=== PATIENT | female | born 1995 | race Two or more races ===

== ENCOUNTER 2021-09-28 16:01 | Emergency (ER) | payer OTHER ==
[~2021-09-28] VITALS: Ht 149.9 cm; Wt 50.8 kg
[2021-09-28] MEDS ORDERED: ACETAMINOPHEN650 M2 PO (23:18)
[2021-09-28] MEDS ORDERED: MUCINEX DM ER1 EAC1 PO (23:18)
[2021-09-28] MEDS ORDERED: ZYRTEC10 MG PO (23:18)
== END 2021-09-28 23:42 | disposition home or self-care (01) ==
LOC: ER 16:01
DX: J06.9 Acute upper respiratory infection, unspecified (principal); B34.9 Viral infection, unspecified; J45.998 Other asthma; Z20.822 Contact with and (suspected) exposure to COVID-19